=== PATIENT | male | born 1980 | race African-American/Black ===

== ENCOUNTER 2022-06-09 18:28 | Emergency (ER) | payer MEDICAID ==
[~2022-06-09] VITALS: Ht 172.7 cm; Wt 105.0 kg
[2022-06-09] MEDS ORDERED: IBUPROFEN 600MG TABLET PO ONE (22:00)
[2022-06-09] MEDS ORDERED: CYCL10TA21 MT (22:06)
[2022-06-09 22:48] VITALS: BP 142/85
== END 2022-06-09 22:51 | disposition home or self-care (01) ==
LOC: ER 18:28
DX: S30.0XXA Contusion of lower back and pelvis, initial encounter (principal); S10.83XA Contusion of other specified part of neck, initial encounter; V49.69XA Unspecified car occupant injured in collision with other motor vehicles in traffic accident, initial encounter; Y93.89 Activity, other specified; Y92.488 Other paved roadways as the place of occurrence of the external cause
CPT/HCPCS: 72131; 99284